=== PATIENT | female | born 1965 | race Caucasian/White ===

== ENCOUNTER 2017-10-18 11:56 | Emergency (ER) | payer OTHER ==
[~2017-10-18] VITALS: Ht 170.2 cm; Wt 80.0 kg
[2017-10-18] MEDS ORDERED: NS 1,000 ML IV SCH (12:39)
[2017-10-18] MEDS ORDERED: ASPIRIN 81 MG CHEW TABLET PO ONE (12:45)
--- NOTE | 2017-10-18 13:00 | REP ---
PA and lateral chest: Comparison is 12/15/2014. The lung boyer are clear. The cardiac size is normal The norris, mediastinum, and bony thorax are unremarkable. Impression: Negative PA and lateral chest. There is no interval change. Signed by Timothy Zheng MD 10/18/2017 12:50 P
[2017-10-18 13:53] LABS: BASO # 0.1 10^3/uL (0.0-0.2); BASO % 0.4 % (0.0-1.0); EOS # 0.1 10^3/uL (0.0-0.50); EOS % 0.6 % (0.0-3.0); IMMATURE GRANULOCYTE % 0.4 % (0-0); LYMPH # 3.2 10^3/uL (1.5-4.5); LYMPH % 20.4 % (24.0-44.0); MEAN CORPUSCULAR HEMOGLOBIN 31.1 pg (27.0-33.0); MEAN CORPUSCULAR HGB CONC 33.8 g/dl (32.0-36.5); MEAN CORPUSCULAR VOLUME 91.9 fl (80.0-96.0); MONO # 1.2 10^3/uL (0.0-0.8); MONO % 7.4 % (0.0-5.0); NEUTROPHILS # 11.1 10^3/uL (1.8-7.7); NEUTROPHILS % 70.8 % (36.0-66.0); PLATELET COUNT, AUTOMATED 224 10^3/uL (150-450); RED CELL DISTRIBUTION WIDTH 13.6 % (11.5-14.5); WHITE BLOOD COUNT 15.7 10^3/uL (4.0-10.0)
[2017-10-18 14:20] LABS: ANION GAP 7 MEQ/L (8-16); BLOOD UREA NITROGEN 11 MG/DL (7-18); CALCIUM LEVEL 9.3 MG/DL (8.5-10.1); CARBON DIOXIDE LEVEL 26 MEQ/L (21-32); CHLORIDE LEVEL 108 MEQ/L (98-107); CREATININE FOR GFR 0.69 MG/DL (0.55-1.02); GLOMERULAR FILTRATION RATE > 60.0 (>51); GLUCOSE, FASTING 89 MG/DL (70-105); POTASSIUM SERUM 4.2 MEQ/L (3.5-5.1); SODIUM LEVEL 141 MEQ/L (136-145)
[2017-10-18 17:04] VITALS: BP 147/70
--- NOTE | 2017-10-18 19:29 | ECGEPIP ---
Stationary ECG Study [facility] - ED Test Date: 2017-10-18 Pat Name: JORDYN KRAFT Department: Room: - Gender: F [employer]: JESS : 1965 Requested By: Jewel Pickens Order Number: [id number] Reading MD: Leydi Cleveland Measurements Intervals [place] Rate: 62 P: 59 MT: 198 QRS: -8 QRSD: 97 T: 37 QT: 387 QTc: 396 Interpretive Statements SINUS RHYTHM NSTTW ABNORMALITY SIMILAR 12/15/14 Electronically Signed On 10-18-2017 19:29:34 EST by Leydi Cleveland
--- NOTE | 2017-10-18 19:41 | ECGEPIP ---
Stationary ECG Study [facility] - ED Test Date: 2017-10-18 Pat Name: JORDYN REYEZ Department: Room: - Gender: F Taffy Puller: sunny HOLTB: 1965 Requested By: NINOSKA MICHEL Order Number: [id number] Reading MD: Leydi Cleveland Measurements Intervals [place] Rate: 60 P: 59 MD: 216 QRS: 6 QRSD: 92 T: 44 QT: 398 QTc: 400 Interpretive Statements SINUS RHYTHM WITH FIRST DEGREE AV BLOCK DELAYED R PROGRESSION NSTTW ABNORMALITY SIMILAR 10/18/17 Electronically Signed On 10-18-2017 19:41:26 EST by Leydi Cleveland
== END 2017-10-18 17:07 | disposition home or self-care (01) ==
LOC: M ED 11:56 → EDBD 11:56 → M ED 17:07
DX: R07.89 Other chest pain (principal); F17.210 Nicotine dependence, cigarettes, uncomplicated; Z82.49 Family history of ischemic heart disease and other diseases of the circulatory system

== ENCOUNTER 2019-08-08 07:30 | Emergency (ER) | payer OTHER, SELFPAY ==
[~2019-08-08] VITALS: Ht 165.1 cm; Wt 73.1 kg
[2019-08-08 08:19] LABS: BASO # 0.1 10^3/uL (0.0-0.2); BASO % 0.6 % (0.0-1.0); EOS # 0.2 10^3/uL (0.0-0.5); EOS % 1.5 % (0.0-3.0); HEMATOCRIT 48.1 % (36.0-47.0); LYMPH # 3.1 10^3/uL (1.5-5.0); MEAN CORPUSCULAR HEMOGLOBIN 31.6 pg (27.0-33.0); MEAN CORPUSCULAR HGB CONC 33.3 g/dl (32.0-36.5); MEAN CORPUSCULAR VOLUME 95.1 fl (80.0-96.0); MONO # 1.2 10^3/uL (0.0-0.8); MONO % 9.6 % (0.0-5.0); NEUTROPHILS # 7.8 10^3/uL (1.5-8.5); NEUTROPHILS % 62.9 % (36.0-66.0); PLATELET COUNT, AUTOMATED 216 10^3/uL (150-450); RED BLOOD COUNT 5.06 10^6/uL (4.00-5.40); WHITE BLOOD COUNT 12.4 10^3/uL (4.0-10.0)
--- NOTE | 2019-08-08 08:30 | REP ---
Chest x-ray: Two views. History: Tobacco use. Increasing cough. Weakness. Comparison chest x-ray: October 18, 2017. Findings: The lungs are symmetrically aerated and free of infiltrate. Pleural angles are sharp. Cardiomediastinal silhouette is unremarkable and unchanged. No significant bony abnormality is appreciated. Impression: No active cardiopulmonary disease is seen on plain chest radiograph. Electronically Signed by Patrice Arreola MD 08/08/2019 08:22 A
[2019-08-08] MEDS ORDERED: ALL10TAB29 PO (08:49)
[2019-08-08] MEDS ORDERED: FLUTISP (08:49)
[2019-08-08] MEDS ORDERED: AZIT-10 PO (08:49)
[2019-08-08 08:55] VITALS: BP 142/86
== END 2019-08-08 09:12 | disposition home or self-care (01) ==
LOC: M ED 07:30
DX: J01.90 Acute sinusitis, unspecified (principal); H66.92 Otitis media, unspecified, left ear; J00 Acute nasopharyngitis [common cold]; F17.210 Nicotine dependence, cigarettes, uncomplicated; Z88.0 Allergy status to penicillin

== ENCOUNTER 2021-02-26 12:01 | Emergency (ER) | payer SELFPAY ==
[~2021-02-26] VITALS: Ht 165.1 cm; Wt 73.1 kg
[~2021-02-26 12:01] MED LIST: AZIT-10 PO; CETI-24 PO; FLUTISP
[2021-02-26] MEDS ORDERED: ALBU8.5H INH (12:20)
[2021-02-26 13:48] VITALS: BP 126/71
--- NOTE | 2021-02-27 12:54 | ECGEPIP ---
[facility] - ED Test Date: 2021-02-26 Pat Name: JORDYN REYEZ Department: Room: - Gender: Female Travel Pt: EFRA : 1965 Requested By: Leydi Cleveland Order Number: [id number] Reading MD: Leydi Cleveland Measurements Intervals [place] Rate: 68 P: 64 TN: 180 QRS: -14 QRSD: 94 T: 49 QT: 386 QTc: 410 Interpretive Statements Normal sinus rhythm similar 10/18/17 Electronically Signed on 02-27-2021 12:54:11 EDT by Leydi Cleveland
== END 2021-02-26 14:06 | disposition left against medical advice (07) ==
LOC: M ED 12:01
DX: R07.9 Chest pain, unspecified (principal); R42 Dizziness and giddiness; Z88.0 Allergy status to penicillin; F17.210 Nicotine dependence, cigarettes, uncomplicated

== ENCOUNTER → 2022-07-21 | Outpatient (CLI) | payer OTHER ==
[~2022-07-21] MED LIST changes: +ALBU8.5H INH
== END ==
LOC: M EKG 11:55
PROVIDERS: ATTEND Physician Assistant
DX: R03.0 Elevated blood-pressure reading, without diagnosis of hypertension (principal)

== ENCOUNTER → 2022-08-12 | Outpatient (CLI) | payer OTHER ==
[2022-08-12 12:29] LABS: CREATININE, URINE 40.2 MG/DL; CREATININE,RANDOM URINE 40.2 MG/DL; MALB URINE SIEMENS 17.7 MG/L
== END ==
LOC: M LAB 10:49
PROVIDERS: ATTEND Internal Medicine Cardiovascular Disease
DX: I10 Essential (primary) hypertension (principal)

== ENCOUNTER → 2022-08-27 | Outpatient (CLI) | payer OTHER | LOC: M CARPUL 13:09 | PROVIDERS: ATTEND Internal Medicine Cardiovascular Disease | DX: R06.00 Dyspnea, unspecified (principal) ==

== ENCOUNTER → 2022-12-14 | Outpatient (CLI) | payer OTHER | LOC: M RAD 09:28 | PROVIDERS: ATTEND Physician Assistant | DX: J43.8 Other emphysema (principal); R91.8 Other nonspecific abnormal finding of lung field; I70.0 Atherosclerosis of aorta; F17.211 Nicotine dependence, cigarettes, in remission ==

== ENCOUNTER → 2022-12-15 | Outpatient (REF) | payer OTHER ==
[2022-12-15 17:34] LABS: ALBUMIN 3.9 G/DL (3.2-5.2); ALKALINE PHOSPHATASE 118 U/L (46-116); ALT/SGPT 148 U/L (7.0-40); AST/SGOT 87 U/L (<34); BILIRUBIN,TOTAL 0.6 MG/DL (0.3-1.2); BLOOD UREA NITROGEN 14 MG/DL (9-23); CALCIUM LEVEL 9.2 MG/DL (8.5-10.1); CARBON DIOXIDE LEVEL 30 MMOL/L (20-31); CHLORIDE LEVEL 100 MMOL/L (98-107); GLOMERULAR FILTRATION RATE > 60.0 (>51); GLUCOSE, FASTING 81 MG/DL (60-100); POTASSIUM SERUM 4.6 MMOL/L (3.5-5.1); SODIUM LEVEL 138 MMOL/L (136-145); TOTAL PROTEIN 7.5 G/DL (5.7-8.2)
== END ==
LOC: M LAB REF 16:05
PROVIDERS: ATTEND Physician Assistant
DX: Z12.4 Encounter for screening for malignant neoplasm of cervix (principal); R87.613 High grade squamous intraepithelial lesion on cytologic smear of cervix (HGSIL); R74.01 Elevation of levels of liver transaminase levels; Z87.42 Personal history of other diseases of the female genital tract

== ENCOUNTER → 2023-01-11 | Outpatient (CLI) | payer OTHER | LOC: M WHC 08:21 | PROVIDERS: ATTEND Physician Assistant | DX: R74.01 Elevation of levels of liver transaminase levels (principal) ==

== ENCOUNTER 2023-03-04 10:17 | Day surgery (SDC) | payer OTHER ==
[~2023-03-04] VITALS: Ht 165.1 cm; Wt 97.1 kg
[~2023-03-04 10:17] MED LIST changes: +BUDE10.7 IH; +CHLO125TA PO; +FLUT50SP17; -FLUTISP; +KETOROLAC 60MG 2ML VIAL As Ordered ONE; +LIDOCAINE 2% 100MG/5ML SDV (FOR ANES.) As Ordered ONE; +LIDOCAINE W/EPINEPHRINE 1% 20ML VIAL As Ordered ONE; +MIDAZOLAM INJ 2MG/2ML VIAL As Ordered ONE; +ONDANSETRON 4MG 2ML VIAL As Ordered ONE; +POTA1TAB14 PO; +fentaNYL 100 MCG/2 ML INJECTION As Ordered ONE; +propofoL 200 MG/20 ML VIAL As Ordered ONE; +propofoL 500 MG/50 ML VIAL As Ordered ONE
[2023-03-04] MEDS ORDERED: LR 1,000 ML IV SCH (10:30)
[2023-03-04 10:59] LABS: HEMATOCRIT 49.2 % (36.0-47.0); HEMOGLOBIN 16.3 g/dl (12.0-15.5); MEAN CORPUSCULAR HEMOGLOBIN 32.2 pg (27.0-33.0); MEAN CORPUSCULAR HGB CONC 33.1 g/dl (32.0-36.5); MEAN CORPUSCULAR VOLUME 97.2 fl (80.0-96.0); PLATELET COUNT, AUTOMATED 207 10^3/uL (150-450); RED BLOOD COUNT 5.06 10^6/uL (4.00-5.40); WHITE BLOOD COUNT 11.1 10^3/uL (4.0-10.0)
[2023-03-04] MEDS ORDERED: IODINE STRONG SOLN 15ML BTL As Ordered ONE (12:07)
[2023-03-04 13:40] VITALS: BP 119/74
== END 2023-03-04 14:00 | disposition home or self-care (01) ==
LOC: M SDC 10:17
PROVIDERS: ATTEND Specialist
DX: D06.9 Carcinoma in situ of cervix, unspecified (principal); I10 Essential (primary) hypertension; R06.02 Shortness of breath; E66.9 Obesity, unspecified; Z68.43 Body mass index [BMI] 50.0-59.9, adult; Z87.891 Personal history of nicotine dependence; Z88.0 Allergy status to penicillin; Z79.899 Other long term (current) drug therapy; Z79.51 Long term (current) use of inhaled steroids
CPT/HCPCS: 36415; 57522; 85027; 88307; J1885; J2250; J2405; J3010

== ENCOUNTER → 2023-04-28 | Outpatient (REF) | payer OTHER ==
[~2023-04-28] MED LIST changes: -KETOROLAC 60MG 2ML VIAL As Ordered ONE; -LIDOCAINE 2% 100MG/5ML SDV (FOR ANES.) As Ordered ONE; -LIDOCAINE W/EPINEPHRINE 1% 20ML VIAL As Ordered ONE; -MIDAZOLAM INJ 2MG/2ML VIAL As Ordered ONE; -ONDANSETRON 4MG 2ML VIAL As Ordered ONE; +POTA-298 PO; -POTA1TAB14 PO; -fentaNYL 100 MCG/2 ML INJECTION As Ordered ONE; -propofoL 200 MG/20 ML VIAL As Ordered ONE; -propofoL 500 MG/50 ML VIAL As Ordered ONE
[2023-04-28 17:20] LABS: ALKALINE PHOSPHATASE 127 U/L (46-116); ALT/SGPT 240 U/L (7.0-40); AST/SGOT 106 U/L (<34); BILIRUBIN,TOTAL 0.6 MG/DL (0.3-1.2); BLOOD UREA NITROGEN 17 MG/DL (9-23); CALCIUM LEVEL 10.2 MG/DL (8.5-10.1); CARBON DIOXIDE LEVEL 29 MMOL/L (20-31); CHLORIDE LEVEL 106 MMOL/L (98-107); CHOLESTEROL LEVEL 208 MG/DL (<200); CHOLESTEROL RISK RATIO 3.43 (<5); CREATININE FOR GFR 0.73 MG/DL (0.55-1.30); GLOMERULAR FILTRATION RATE > 60.0 (>51); GLUCOSE, FASTING 92 MG/DL (60-100); HDL CHOLESTEROL 60.6 MG/DL (>40); LDL CHOLESTEROL 123.4 MG/DL (<100); NON-HDL-C 147.4 MG/DL; POTASSIUM SERUM 4.5 MMOL/L (3.5-5.1); SODIUM LEVEL 142 MMOL/L (136-145); TOTAL PROTEIN 7.1 G/DL (5.7-8.2); TRIGLYCERIDES LEVEL 120 MG/DL (<150)
== END ==
LOC: M LAB REF 16:33
PROVIDERS: ATTEND Physician Assistant
DX: I10 Essential (primary) hypertension (principal)

== ENCOUNTER → 2023-06-22 | Outpatient (CLI) | payer OTHER | LOC: M RAD 13:15 | PROVIDERS: ATTEND Internal Medicine Pulmonary Disease | DX: R91.8 Other nonspecific abnormal finding of lung field (principal) ==

== ENCOUNTER → 2023-11-11 | Outpatient (REF) | payer OTHER, MEDICAID ==
[~2023-11-11] MED LIST changes: -FLUT50SP17; +FLUTISP
[2023-11-11 18:56] LABS: HEMOGLOBIN A1c 6.1 % (4.0-6.0)
[2023-11-11 19:02] LABS: ALBUMIN 4.2 G/DL (3.2-5.2); ALKALINE PHOSPHATASE 118 U/L (46-116); ALT/SGPT 205 U/L (7.0-40); AST/SGOT 106 U/L (<34); BILIRUBIN,TOTAL 0.6 MG/DL (0.3-1.2); BLOOD UREA NITROGEN 17 MG/DL (9-23); CALCIUM LEVEL 9.5 MG/DL (8.5-10.1); CARBON DIOXIDE LEVEL 28 MMOL/L (20-31); CHLORIDE LEVEL 105 MMOL/L (98-107); CHOLESTEROL LEVEL 239 MG/DL (<200); CHOLESTEROL RISK RATIO 3.31 (<5); CREATININE FOR GFR 0.69 MG/DL (0.55-1.30); GLOMERULAR FILTRATION RATE > 60.0 (>51); GLUCOSE, FASTING 86 MG/DL (60-100); HDL CHOLESTEROL 72.2 MG/DL (>40); NON-HDL-C 166.8 MG/DL; PHOSPHORUS LEVEL 3.7 MG/DL (2.5-4.9); POTASSIUM SERUM 4.3 MMOL/L (3.5-5.1); PTH INTACT 87.9 PG/ML (18.5-88.0); SODIUM LEVEL 137 MMOL/L (136-145); TOTAL PROTEIN 7.3 G/DL (5.7-8.2); TRIGLYCERIDES LEVEL 139 MG/DL (<150)
[2023-11-11 19:03] LABS: FERRITIN 609.1 NG/ML (7.3-270.7); THYROID STIMULATING HORMONE 1.841 uIU/ML (0.55-4.78)
[2023-11-11 19:04] LABS: FOLATE 22.82 NG/ML (>5.4); TOTAL 25(OH) VITAMIN D 12.2 NG/ML (20.0-100.0)
== END ==
LOC: M LAB REF 16:51
PROVIDERS: ATTEND Nurse Practitioner Family
DX: I10 Essential (primary) hypertension (principal); R74.01 Elevation of levels of liver transaminase levels; E78.5 Hyperlipidemia, unspecified; E83.52 Hypercalcemia

== ENCOUNTER → 2023-12-20 | Outpatient (CLI) | payer OTHER ==
[2023-12-20 14:14] LABS: BASO # 0.1 10^3/uL (0.0-0.2); BASO % 0.6 % (0.0-1.0); EOS # 0.3 10^3/uL (0.0-0.5); EOS % 2.7 % (0.0-3.0); HEMATOCRIT 48.8 % (36.0-47.0); HEMOGLOBIN 16.8 g/dl (12.0-15.5); LYMPH # 3.9 10^3/uL (1.5-5.0); LYMPH % 38.1 % (24.0-44.0); MEAN CORPUSCULAR HEMOGLOBIN 32.7 pg (27.0-33.0); MEAN CORPUSCULAR HGB CONC 34.4 g/dl (32.0-36.5); MEAN CORPUSCULAR VOLUME 94.9 fl (80.0-96.0); MONO # 1.1 10^3/uL (0.0-0.8); MONO % 10.6 % (2.0-8.0); NEUTROPHILS # 4.9 10^3/uL (1.5-8.5); NEUTROPHILS % 47.8 % (36.0-66.0); PLATELET COUNT, AUTOMATED 212 10^3/uL (150-450); RED BLOOD COUNT 5.14 10^6/uL (4.00-5.40); WHITE BLOOD COUNT 10.2 10^3/uL (4.0-10.0)
[2023-12-20 14:35] LABS: PERCENT SATURATION 25.8 % (13.2-45.0)
== END ==
LOC: M LAB 13:35
PROVIDERS: ATTEND Physician Assistant
DX: D75.1 Secondary polycythemia (principal)

== ENCOUNTER → 2024-01-22 | Outpatient (CLI) | payer OTHER ==
[~2024-01-22] MED LIST changes: -BUDE10.7 IH; +BUDE10.7 INH
[2024-01-22 11:58] LABS: BASO # 0.1 10^3/uL (0.0-0.2); BASO % 0.6 % (0.0-1.0); EOS # 0.2 10^3/uL (0.0-0.5); EOS % 2.2 % (0.0-3.0); HEMATOCRIT 48.6 % (36.0-47.0); HEMOGLOBIN 16.3 g/dl (12.0-15.5); LYMPH # 3.4 10^3/uL (1.5-5.0); LYMPH % 33.8 % (24.0-44.0); MEAN CORPUSCULAR HEMOGLOBIN 31.7 pg (27.0-33.0); MEAN CORPUSCULAR HGB CONC 33.5 g/dl (32.0-36.5); MEAN CORPUSCULAR VOLUME 94.6 fl (80.0-96.0); MONO # 0.8 10^3/uL (0.0-0.8); MONO % 7.9 % (2.0-8.0); NEUTROPHILS # 5.5 10^3/uL (1.5-8.5); NEUTROPHILS % 55.2 % (36.0-66.0); PLATELET COUNT, AUTOMATED 204 10^3/uL (150-450); RED BLOOD COUNT 5.14 10^6/uL (4.00-5.40)
[2024-01-22 12:22] LABS: BILIRUBIN,DIRECT 0.2 MG/DL (<0.4); BILIRUBIN,TOTAL 0.6 MG/DL (0.3-1.2); CHOLESTEROL RISK RATIO 3.1 (<5); HDL CHOLESTEROL 60.2 MG/DL (>40); NON-HDL-C 126.8 MG/DL; PERCENT SATURATION 29.3 % (13.2-45.0); TOTAL PROTEIN 7.2 G/DL (5.7-8.2)
== END ==
LOC: M LAB 11:05
PROVIDERS: ATTEND Physician Assistant
DX: D75.1 Secondary polycythemia (principal); R74.01 Elevation of levels of liver transaminase levels

== ENCOUNTER 2024-01-28 11:32 | Day surgery (SDC) | payer OTHER ==
[~2024-01-28] VITALS: Ht 165.1 cm; Wt 98.4 kg
[2024-01-28] MEDS: NS 1,000 ML IV ONE (12:05)
[2024-01-28 12:51] VITALS: TEMP 96
[2024-01-28 13:00] VITALS: BP 121/69; O2SAT 94
== END 2024-01-28 13:08 | disposition home or self-care (01) ==
LOC: M OPP 11:32
PROVIDERS: ATTEND Surgery
DX: K64.1 Second degree hemorrhoids (principal); K63.5 Polyp of colon; R19.5 Other fecal abnormalities; G47.30 Sleep apnea, unspecified; Z99.89 Dependence on other enabling machines and devices; Z79.51 Long term (current) use of inhaled steroids; Z79.899 Other long term (current) drug therapy; Z88.0 Allergy status to penicillin

== ENCOUNTER → 2024-03-31 | Outpatient (CLI) | payer OTHER ==
[~2024-03-31] MED LIST changes: +ATOR1TAB19; +INCR1INH
[2024-03-31 16:50] LABS: IMMUNOGLOBULIN A 178.2 MG/DL (40-350)
[2024-03-31 16:51] LABS: IMMUNOGLOBULIN G 1025 MG/DL (650-1600)
[2024-03-31 16:59] LABS: HEPATITIS B SURFACE ANTIGEN NEGATIVE (NEGATIVE)
[2024-03-31 17:19] LABS: HEPATITIS C VIRUS ABY INDEX < 0.02 INDEX (<0.8)
== END ==
LOC: M LAB 14:39
PROVIDERS: ATTEND Internal Medicine Hematology & Oncology
DX: R74.01 Elevation of levels of liver transaminase levels (principal)